=== PATIENT | male | born 1960 | race Caucasian/White ===

== ENCOUNTER 2022-02-13 15:54 | Emergency (ER) | payer MEDICARE, MEDICAID, SELFPAY ==
[2022-02-13 15:56] VITALS: BP 109/65; PULSE 104; RESP 18; TEMP 36.7; O2SAT 97; BMI 16.6
--- NOTE | 2022-02-13 16:03 | ECG_ITS ---
Test Reason : CHEST PAIN Blood Pressure : / mmHG Vent. Rate : 103 BPM Atrial Rate : 103 BPM P-R Int : 126 ms QRS Dur : 082 ms QT Int : 326 ms P-R-T Axes : 055 -32 025 degrees QTc Int : 427 ms Sinus tachycardia Left anterior fascicular block Intra-ventricular conduction delay Abnormal ECG No previous ECGs available Referred By: Generic ED Physician Electronically Signed By:ANDRÉS REED MD
[2022-02-13 16:27] LABS: MANUAL DIFF FLAG NO
[2022-02-13 16:28] LABS: Basophils Percent Auto 0.2 % (0-2); Eosinophils Percent Auto 0.5 % (0-4); Hematocrit 40.6 % (42.0-52.0); Hemoglobin 12.8 g/dl (14.0-18.0); Imm Gran Abs Auto 0.02 X10*3/uL (0.00-0.03); Imm Gran Pct Auto 0.2 % (0.0-0.4); Lymphocytes Absolute Auto 0.8 X10*3/uL (1.2-4.9); Lymphocytes Percent Auto 9.3 % (20-40); Mean Corpuscular HGB Conc 31.5 g/dl (31.0-36.0); Mean Corpuscular Hemoglobin 28.5 pg (27.0-33.0); Mean Corpuscular Volume 90.4 fL (80.0-98.0); Monocytes Absolute Auto 0.5 X10*3/uL (0.1-1.2); Monocytes Percent Auto 5.9 % (2-11); Neutrophils Absolute Auto 6.8 x10*3/uL (2.0-8.3); Neutrophils Percent Auto 83.9 % (45-73); Platelet Count 167 X10*3/uL (160-400); Red Blood Count 4.49 X10*6/uL (4.60-5.80); Red Cell Distribution Width 13.4 % (11.0-16.0); White Blood Count 8.1 X10*3/uL (4.8-10.8)
[2022-02-13 16:46] LABS: Anion Gap 15 (12-20); Blood Urea Nitrogen 19 mg/dL (9-16); Calcium 9.9 mg/dL (8.4-10.2); Carbon Dioxide 26 mmol/L (22-29); Chloride 102 mmol/L (96-108); Creatinine Clr Calc Pharmacy 67.2; Estimated Glomerular Filt Rate > 60; Glucose Random 99 mg/dL (60-115); Potassium 4.2 mmol/L (3.3-5.1); Sodium 139 mmol/L (135-145)
[2022-02-13 16:50] LABS: Troponin-I High Sensitivity < 3.5 ng/L (<3.5-35.0)
--- NOTE | 2022-02-13 22:30 | ED_ITS ---
HPI - General Adult General Chief complaint: General Medical Stated complaint: Chest pain/Low blood pressure Time Seen by Provider: 02/13/22 22:30 Source: other ( S[employer] RECRUITMENT CONSULTANT) Mode of arrival: ambulatory Limitations: other ( patient has difficult to comprehend dysarthric speech secondary to cerebral palsy) History of Present Illness HPI narrative: 61-year-old male who was brought to the emergency department by his SENIOR RECRUITMENT CONSULTANT for evaluation of chest pain, decreased blood pressure and dark urine. According to his SENIOR RECRUITMENT CONSULTANT the patient also had a cough which is productive of mucus, the patient may have had chills but no documented fever. The patient's sister states the patient often gets aspiration pneumonia and she was concerned that he may have pneumonia therefore she wanted him evaluated in the emergency department. The p atient has cerebral palsy and has hard to comprehend dysarthric speech but he can not communicate with his S[employer]IOR RECRUITMENT CONSULTANT. the patient has a G-tube since he has history of aspiration and gets all his medication, food and fluids through the G-tube. Related Data Previous Rx's Medication Instructions Recorded amoxicillin 250 mg/5 mL oral 1,000 mg (20 mL) PO TID 5 days 02/13/22 suspension #300 mL azithromycin 200 mg/5 mL oral See Rx Instructions PO .COMPLEX 02/13/22 suspension #40 mL Allergies Allergy/AdvReac Type Severity Reaction Status Date / Time No Known Allergies Allergy Verified 02/13/22 16:02 Review of Systems Review of Systems: Yes Unobtainable due to mental condition [facility] Past Medical History [facility] Narrative: Past medical history: Cerebral palsy, anxiety, GERD, aspiration pneumonia. Social history: The patient lives at home with SENIOR RECRUITMENT CONSULTANT. He does not drink alcohol smoke cigarettes or use drugs Social History Social History Advance Directives: Yes Advance Directives Information Provided: No Advance Directives on File: No Physical Exam ED Vital Signs: Vital Signs - 24 hr 02/13/22 15:56 Temperature 98.1 F Pulse Rate 104 H Respiratory Rate 18 Blood Pressure 109/65 Pulse Oximetry 97 Oxygen Delivery Method Room Air BMI result Body Mass Index 16.6 Const Other: awake, alert, male patient, he has spastic movements consistent with his cerebral palsy, he is able to talk but his speech is very difficult HENMT Other: head is atraumatic, pupils were equal round reactive light, sclera conjunctiva were normal, mouth revealed moist membranes, Neck Other: neck is nontender Chest Other: chest wall was nontender Resp Other: lungs, clear to auscultation and breath sounds symmetric bilaterally Cardio Other: regular rate rhythm, normal S1-S2, no murmurs, GI Other: G-tube in place, abdomen soft, nontender, normoactive bowel sounds Neuro Other: spastic movements consistent with cerebral palsy Course Course Course Narrative: 61-year-old male with history cerebral palsy and aspiration pneumonia was brought to the emergency department for evaluation chest pain, dark urine, cough, chills but no documented fever. Vital signs revealed an elevated pulse of 104 otherwise unremarkable. Lung exam was clear. Patient had a CBC and BMP which was unremarkable. Troponin was below detectable limits. EKG was unremarkable as well. chest x-ray one view radiology reading is as follows: IMPRESSION: Left parahilar opacification concerning for infiltrates. Small leftsubpulmonic pleural effusion. Dictated By:Annette Mcgowan MD Medical Decision Making Lab Data Lab results reviewed: Yes I reviewed the patient's lab results. Result diagrams: 02/13/22 16:15 02/13/22 16:15 Labs: Lab Results 02/13/22 02/13/22 02/13/22 Range/Units 16:15 16:15 16:15 WBC 8.1 (4.8-10.8) X10*3/uL RBC 4.49 L (4.60-5.80) X10*6/uL Hgb 12.8 L (14.0-18.0) g/dl Hct 40.6 L (42.0-52.0) % MCV 90.4 (80.0-98.0) fL MCH 28.5 (27.0-33.0) pg MCHC 31.5 (31.0-36.0) g/dl RDW 13.4 (11.0-16.0) % Plt Count 167 (160-400) X10*3/uL MPV 10.0 (9.4-12.4) fL Immature Gran % (Auto) 0.2 (0.0-0.4) % Neut % (Auto) 83.9 H (45-73) % Lymph % (Auto) 9.3 L (20-40) % [place] % (Auto) 5.9 (2-11) % Eos % (Auto) 0.5 (0-4) % Baso % (Auto) 0.2 (0-2) % Lymph # (Auto) 0.8 L (1.2-4.9) X10*3/uL [place] # (Auto) 0.5 (0.1-1.2) X10*3/uL Eos # (Auto) 0.0 (0.0-0.4) X10*3/uL Baso # (Auto) 0.0 (0.0-0.2) X10*3/uL Abs Immat Gran (auto) 0.02 (0.00-0.03) X10*3/uL Absolute Neuts (auto) 6.8 (2.0-8.3) x10*3/uL Absolute Nucleated RBC 0.000 (0.0-0.012) X10*3/uL Nucleated RBC % (auto) 0.0 (0.0-0.2) /100WBC Sodium 139 (135-145) mmol/L Potassium 4.2 (3.3-5.1) mmol/L Chloride 102 (96-108) mmol/L Carbon Dioxide 26 (22-29) mmol/L Anion Gap 15 (12-20) BUN 19 H (9-16) mg/dL Creatinine 0.74 (0.5-1.4) mg/dL Estim Creat Clear Calc 67.2 Estimated GFR > 60 Random Glucose 99 (60-115) mg/dL Calcium 9.9 (8.4-10.2) mg/dL Total Bilirubin 0.3 (0.0-1.0) mg/dL Direct Bilirubin < 0.2 (0.0-0.5) mg/dL AST 13 (5-37) U/L ALT 6 (0-40) U/L Alkaline Phosphatase 114 (39-117) U/L Troponin I High Sens < 3.5 (<3.5-35.0) ng/L Total Protein 7.9 (6.5-8.0) g/dL Albumin 3.9 (3.5-5.0) g/dL ECG Data Attestation: I personally reviewed and interpreted this ECG as follows: Interpretation: 1607: Sinus tachycardia with rate of 103, normal MD interval, QRS interval and QTC duration, no ST segment elevation, no ST segment depression, no T-wave abnormalities, no PACs, no PVCs Discharge Plan Discharge Clinical Impression: Pneumonia Qualifiers: Pneumonia type: aspiration pneumonia Patient Disposition: Home, Self-Care Instructions: Aspiration Pneumonia (DC) Additional Instructions: Amoxicillin 250 mg per 5 mL, 20 mL ( 1000 mg) 3 times a day per g-tube for 5 days Zithromax (azithromycin) 200 mg per 5 mL, 12.5 mg per g-tube on day 1, then 6.25 mg per g-tube day 2-5 Increase his fluid intake per g-tube to help prevent dehydration. Follow-up with your doctor in 2 days. Please return to the emergency department if your symptoms get worse or if you develop any symptoms that are concerning to you. Prescriptions: New amoxicillin 250 mg/5 mL suspension for reconstitution 1,000 mg PO TID 5 Days Qty: 300 0RF azithromycin 200 mg/5 mL suspension for reconstitution See Rx Instructions .ROUTE .COMPLEX Qty: 40 0RF Rx Instructions: take 12.5 mL (500 mg) by mouth today (day 1), then 6.25 mL (250 mg) daily for 4 days (days 2-5)
[2022-02-13 22:51] LABS: Alanine Aminotransferase 6 U/L (0-40); Albumin Level 3.9 g/dL (3.5-5.0); Alkaline Phosphatase 114 U/L (39-117); Aspartate Amino Transferase 13 U/L (5-37); Bilirubin Direct < 0.2 mg/dL (0.0-0.5); Bilirubin Total 0.3 mg/dL (0.0-1.0); Total Protein 7.9 g/dL (6.5-8.0)
[2022-02-13] MEDS: Amoxicillin Oral Susp 4,000 MG/80 ML BOTTLE 1000 MG PO (23:36)
[2022-02-13] MEDS: Azithromycin 500 MG TABLET PO (23:37)
--- NOTE | 2022-02-13 23:40 | PC.NURSE ---
pt medicated per provider order via gtube, azithromycin susp brought down to ED by pharmacy - unable to scan off in computer due to provider being unable to order susp vs tablet.
== END 2022-02-14 00:06 | disposition home or self-care (01) ==
PROVIDERS: Emergency Provider Emergency Medicine Emergency Medical Services; PCP Internal Medicine
DX: J69.0 Pneumonitis due to inhalation of food and vomit (principal); R07.89 Other chest pain; R30.0 Dysuria; Z79.899 Other long term (current) drug therapy
CPT/HCPCS: 36415; 51702; 71045; 80048; 80076; 84484; 85025; 93005; 99283